=== PATIENT | male | born 1990 | race Caucasian/White ===

== ENCOUNTER 2016-07-16 15:41 | Emergency (ER) | payer MEDICAID ==
[~2016-07-16] VITALS: Ht 177.8 cm; Wt 79.0 kg
[~2016-07-16 15:41] MED LIST: DIPH25TA2 PO; DIVA-18 PO; HYDR50CA5 PO; MELA3TAB36 PO; PARO30TA62 PO; ZYDS20 PO
[2016-07-16] MEDS ORDERED: SODIUM CHLORIDE 0.9% 1,000 ML IV ONE ×2 (16:33→18:37)
[2016-07-16 17:01] LABS: BASOPHILS % 0.1 % (0.0-2.0); HEMATOCRIT. 44.7 % (42.0-52.0); HEMOGLOBIN. 15.2 g/dL (14.0-18.0); LYMPHOCYTES % 13.6 % (20.0-50.0); MEAN CORPUSCULAR HEMOGLOBIN 28.8 pg (28.0-32.0); MEAN CORPUSCULAR VOLUME 84.5 fL (80.0-94.0); MEAN PLATELET VOLUME 7.5 fl (7.4-10.4); MONOCYTES % 6.6 % (2.0-8.0); NEUTROPHILS % 79.7 % (40.0-76.0); PLATELET 116 x1000/uL (130-400); RED BLOOD CELL COUNT 5.29 mill/uL (4.7-6.1); RED CELL DISTRIBUTION WIDTH 13.2 % (11.6-14.6); WHITE BLOOD COUNT 8.7 x1000/uL (4.5-11.0)
[2016-07-16 17:16] LABS: ALANINE AMINOTRANSFERASE 32 IU/L (13-61); ANION GAP 15; CALCIUM 8.4 mg/dL (8.5-10.1); CARBON DIOXIDE 24 mEq/L (21-32); CHLORIDE 104 mEq/L (98-107); INDEX HEMOLYSI 1 (1-3); INDEX ICTERIC 1 (1-4); INDEX LIPEMIC 1 (1-3); LIPASE 55 IU/L (73-393); TROPONIN I < 0.02 ng/mL (0.00-0.04); UREA NITROGEN BLOOD 8 mg/dL (7-21); eGFR > 60 mL/min (>60)
[2016-07-16 17:20] LABS: INR 1.3; PROTHROMBIN TIME 13.4 sec
[2016-07-16 18:12] LABS: *AMPHETAMINES SCREEN URINE PRESUMTIVE POSITIVE (NEGATIVE); *BARBITURATES SCREEN URINE NEGATIVE (NEGATIVE); *BENZODIAZEPINES SCREEN URINE NEGATIVE (NEGATIVE); *COCAINE SCREEN URINE NEGATIVE (NEGATIVE); CANNABINOID URINE SCREEN PRESUMTIVE POSITIVE (NEGATIVE); ECSTASY MDMA SCREEN URINE CONF.TEST INDICATED (NEGATIVE); METHADONE URINE SCREEN NEGATIVE (NEGATIVE); OPIATES URINE SCREEN NEGATIVE (NEGATIVE); PHENCYCLIDINE URINE SCREEN NEGATIVE (NEGATIVE)
[2016-07-16 19:38] VITALS: BP 158/90
== END 2016-07-16 19:42 | disposition home or self-care (01) ==
LOC: ER 15:42
DX: F19.10 Other psychoactive substance abuse, uncomplicated (principal); F41.9 Anxiety disorder, unspecified; F31.9 Bipolar disorder, unspecified; F12.10 Cannabis abuse, uncomplicated; Z79.899 Other long term (current) drug therapy
CPT/HCPCS: 36415; 71010; 80053; 80305; 83690; 84484; 85025; 85610; 85730; 93005; 96360; 96361; 99285; G0482; J7030; Z7610